=== PATIENT | male | born 1960 | race Caucasian/White ===

== ENCOUNTER 2024-09-26 10:15 | Oncology outpatient (recurring) (ONCR) | payer MEDICAID, SELFPAY ==
[2024-09-26 10:41] LABS: Basophils % 0.4 %; Eosinophils # 0.2 10^3/uL (0.0-0.8); Eosinophils % 2.7 %; Hematocrit 28.1 % (37-53); Mean Corpuscular HGB Conc 31.7 g/dL (30-55); Mean Corpuscular Hemoglobin 28.4 pg (27-33); Mean Corpuscular Volume 89.8 fl (82-101); Mean Platelet Volume 9.7 fL (7.4-10.4); Monocytes # 0.7 10^3/uL (0.2-0.9); Monocytes % 12.7 %; Neutrophils # 2.69 10^3/uL (1.8-7.7); Neutrophils % 47.5 %; Nucleated Red Blood Cells % 0 %; Platelet Count 139 10^3/cmm (157-399); Red Blood Count 3.13 10^6/uL (3.85-5.65); Red Cell Distribution Width 14.8 % (12.1-15.1); White Blood Count 5.66 10^3/uL (3.29-11.43)
[2024-09-26 10:59] LABS: Alanine Aminotransferase 37 U/L (0-41); Albumin Level 3.3 g/dL (3.5-5.2); Alkaline Phosphatase 144 U/L (40-130); Anion Gap 16.9 (5-19); Aspartate Amino Transferase 21 U/L (0-40); Blood Urea Nitrogen 17 mg/dL (8-23); Calcium 8.9 mg/dL (8.5-10.5); Carbon Dioxide 22 mmol/L (22-29); Chloride 103 mmol/L (98-107); Globulin 3.8 g/dL (1.3-4.6); Glomerular Filtration Rate 97.3 mL/min (90-130); Glucose 89 mg/dL (65-115); Osmolality Calculated 287 mOsm/kg (285-295); Potassium 3.9 mmol/L (3.5-5.1); Sodium 138 mmol/L (136-145); Total Bilirubin 0.2 mg/dL (0.15-1.2); Total Protein 7.1 g/dL (6.6-8.7)
== END 2024-10-11 23:59 | disposition home or self-care (01) ==
PROVIDERS: Visit Provider Internal Medicine
DX: C34.90 Malignant neoplasm of unspecified part of unspecified bronchus or lung (principal)
CPT/HCPCS: 36415; 80053; 85025

== ENCOUNTER 2024-10-31 14:15 | Oncology outpatient (recurring) (ONCR) | payer MEDICAID, SELFPAY ==
[2024-10-31 14:33] LABS: Basophils % 0.2 %; Eosinophils % 0.6 %; Hematocrit 28.9 % (37-53); Lymphocytes % 60.1 %; Mean Corpuscular HGB Conc 32.2 g/dL (30-55); Mean Corpuscular Hemoglobin 29.5 pg (27-33); Mean Corpuscular Volume 91.7 fl (82-101); Mean Platelet Volume 9.4 fL (7.4-10.4); Monocytes # 0.5 10^3/uL (0.2-0.9); Monocytes % 9.1 %; Neutrophils # 1.51 10^3/uL (1.8-7.7); Neutrophils % 29.8 %; Nucleated Red Blood Cells % 0 %; Platelet Count 202 10^3/cmm (157-399); Red Blood Count 3.15 10^6/uL (3.85-5.65); White Blood Count 5.06 10^3/uL (3.29-11.43)
[2024-10-31 14:52] LABS: Alanine Aminotransferase 47 U/L (0-41); Albumin Level 3.3 g/dL (3.5-5.2); Alkaline Phosphatase 148 U/L (40-130); Anion Gap 16.5 (5-19); Aspartate Amino Transferase 24 U/L (0-40); Blood Urea Nitrogen 25 mg/dL (8-23); Calcium 8.9 mg/dL (8.5-10.5); Carbon Dioxide 21 mmol/L (22-29); Chloride 105 mmol/L (98-107); Creatinine Clr Calc Pharmacy 72.5031; Globulin 3.4 g/dL (1.3-4.6); Glomerular Filtration Rate 113.5 mL/min (90-130); Glucose 128 mg/dL (65-115); Lactate Dehydrogenase 243 U/L (135-225); Osmolality Calculated 294 mOsm/kg (285-295); Potassium 3.5 mmol/L (3.5-5.1); Sodium 139 mmol/L (136-145); Total Bilirubin 0.2 mg/dL (0.15-1.2); Total Protein 6.7 g/dL (6.6-8.7)
== END 2024-11-11 23:59 | disposition home or self-care (01) ==
PROVIDERS: Visit Provider Internal Medicine
DX: Z53.9 Procedure and treatment not carried out, unspecified reason; C34.92 Malignant neoplasm of unspecified part of left bronchus or lung
CPT/HCPCS: 36415; 80053; 83615; 83735; 85025

== ENCOUNTER 2024-11-29 09:00 | Oncology outpatient (recurring) (ONCR) | payer MEDICAID, SELFPAY ==
[2024-11-22 08:28] LABS: Basophils % 0.5 %; Eosinophils % 0.3 %; Lymphocytes # 2.5 10^3/uL (0.8-4.8); Lymphocytes % 65.8 %; Mean Corpuscular HGB Conc 32.1 g/dL (30-55); Mean Corpuscular Hemoglobin 30.3 pg (27-33); Mean Corpuscular Volume 94.5 fl (82-101); Mean Platelet Volume 9.9 fL (7.4-10.4); Monocytes # 0.4 10^3/uL (0.2-0.9); Monocytes % 10.2 %; Neutrophils % 22.9 %; Nucleated Red Blood Cells % 0 %; Platelet Count 88 10^3/cmm (157-399); Red Blood Count 2.54 10^6/uL (3.85-5.65); White Blood Count 3.74 10^3/uL (3.29-11.43)
[2024-11-22 08:47] LABS: Alanine Aminotransferase 47 U/L (0-41); Albumin Level 3.4 g/dL (3.5-5.2); Alkaline Phosphatase 146 U/L (40-130); Anion Gap 16.5 (5-19); Aspartate Amino Transferase 27 U/L (0-40); Blood Urea Nitrogen 26 mg/dL (8-23); Calcium 8.7 mg/dL (8.5-10.5); Carbon Dioxide 20 mmol/L (22-29); Chloride 106 mmol/L (98-107); Globulin 3.2 g/dL (1.3-4.6); Glomerular Filtration Rate 97.3 mL/min (90-130); Glucose 87 mg/dL (65-115); Iron 86 ug/dL (59-158); Magnesium 2.1 mg/dL (1.7-2.3); Osmolality Calculated 292 mOsm/kg (285-295); Percent Saturation 42.5 % (20-50); Potassium 3.5 mmol/L (3.5-5.1); Sodium 139 mmol/L (136-145); Total Bilirubin 0.2 mg/dL (0.15-1.2); Total Iron Binding Capacity 202 mcg/dl; Total Protein 6.6 g/dL (6.6-8.7); Unsaturated Iron Binding 116 ug/dL (112-347)
[2024-11-22 09:00] LABS: Ferritin 1350 ng/mL (30-400)
[2024-11-22 09:03] LABS: Vitamin B12 846 pg/mL (232-1245)
[2024-11-22 09:09] LABS: Slide Review Slide Review Perform
[2024-11-22 09:14] LABS: Neutrophils # 0.86 10^3/uL (1.8-7.7)
[2024-11-22 09:46] LABS: Folate Level > 20.0 ng/mL (4.5-32.2)
[2024-11-22 11:30] VITALS: BP 120/84; PULSE 93; RESP 18; TEMP 36.6; O2SAT 99
[2024-11-22 11:45] VITALS: BP 121/82; PULSE 92; RESP 17; TEMP 36.4; O2SAT 99
[2024-11-22 12:00] VITALS: BP 128/90; PULSE 91; RESP 18; TEMP 36.4; O2SAT 98
[2024-11-29 09:26] LABS: Basophils % 0.2 %; Eosinophils % 0.7 %; Hematocrit 27.9 % (37-53); Lymphocytes % 50.1 %; Mean Corpuscular HGB Conc 32.3 g/dL (30-55); Mean Corpuscular Hemoglobin 29.9 pg (27-33); Mean Corpuscular Volume 92.7 fl (82-101); Mean Platelet Volume 10.4 fL (7.4-10.4); Monocytes # 0.8 10^3/uL (0.2-0.9); Monocytes % 19.3 %; Neutrophils % 29.7 %; Nucleated Red Blood Cells % 0 %; Platelet Count 75 10^3/cmm (157-399); Red Blood Count 3.01 10^6/uL (3.85-5.65); Red Cell Distribution Width 21.2 % (12.1-15.1); White Blood Count 4.05 10^3/uL (3.29-11.43)
[2024-11-29 09:48] LABS: Alanine Aminotransferase 21 U/L (0-41); Albumin Level 3.4 g/dL (3.5-5.2); Alkaline Phosphatase 153 U/L (40-130); Aspartate Amino Transferase 22 U/L (0-40); Blood Urea Nitrogen 18 mg/dL (8-23); Calcium 9.4 mg/dL (8.5-10.5); Carbon Dioxide 23 mmol/L (22-29); Chloride 103 mmol/L (98-107); Globulin 3.6 g/dL (1.3-4.6); Glucose 119 mg/dL (65-115); Magnesium 2.1 mg/dL (1.7-2.3); Osmolality Calculated 289 mOsm/kg (285-295); Sodium 138 mmol/L (136-145); Total Bilirubin 0.2 mg/dL (0.15-1.2)
[2024-11-29 10:27] LABS: Total Iron Binding Capacity 196 mcg/dl; Unsaturated Iron Binding 165 ug/dL (112-347)
[2024-11-29 10:41] LABS: Ferritin 1257 ng/mL (30-400)
[2024-11-29 10:42] LABS: Iron 31 ug/dL (59-158); Percent Saturation 15.8 % (20-50); Vitamin B12 1031 pg/mL (232-1245)
[2024-11-29 12:19] LABS: Folate Level > 20.0 ng/mL (4.5-32.2)
== END 2024-12-11 23:59 | disposition home or self-care (01) ==
PROVIDERS: Visit Provider Internal Medicine
DX: Z53.9 Procedure and treatment not carried out, unspecified reason; C34.92 Malignant neoplasm of unspecified part of left bronchus or lung; C79.31 Secondary malignant neoplasm of brain
CPT/HCPCS: 36591; 80053; 82607; 82728; 82746; 83540; 83550; 83735; 85025; 86850; 86900; 86920; P9016

== ENCOUNTER 2025-01-04 08:00 | Oncology outpatient (recurring) (ONCR) | payer MEDICAID, SELFPAY ==
[2024-12-13 11:07] LABS: Hematocrit 26.1 % (37-53); Hemoglobin 8.30 g/dL (11.27-16.99); Mean Corpuscular HGB Conc 31.8 g/dL (30-55); Mean Corpuscular Hemoglobin 30.9 pg (27-33); Mean Corpuscular Volume 97.0 fl (82-101); Nucleated Red Blood Cells % 0 %; Platelet Count 78 10^3/cmm (157-399); Red Blood Count 2.69 10^6/uL (3.85-5.65); White Blood Count 3.24 10^3/uL (3.29-11.43)
[2024-12-13 11:26] LABS: Alanine Aminotransferase 35 U/L (0-41); Albumin Level 3.4 g/dL (3.5-5.2); Alkaline Phosphatase 146 U/L (40-130); Anion Gap 17.8 (5-19); Aspartate Amino Transferase 26 U/L (0-40); Blood Urea Nitrogen 27 mg/dL (8-23); Calcium 9.0 mg/dL (8.5-10.5); Carbon Dioxide 21 mmol/L (22-29); Chloride 105 mmol/L (98-107); Globulin 3.6 g/dL (1.3-4.6); Glucose 133 mg/dL (65-115); Iron 110 ug/dL (59-158); Magnesium 2.1 mg/dL (1.7-2.3); Osmolality Calculated 297 mOsm/kg (285-295); Potassium 3.8 mmol/L (3.5-5.1); Sodium 140 mmol/L (136-145); Total Iron Binding Capacity 226 mcg/dl; Total Protein 7.0 g/dL (6.6-8.7); Unsaturated Iron Binding 116 ug/dL (112-347)
[2024-12-13 11:42] LABS: Vitamin B12 854 pg/mL (232-1245)
[2024-12-13 11:45] LABS: Ferritin 1611 ng/mL (30-400)
[2025-01-03 11:28] LABS: Hematocrit 22.0 % (37-53); Hemoglobin 7.00 g/dL (11.27-16.99); Mean Corpuscular HGB Conc 31.8 g/dL (30-55); Mean Corpuscular Hemoglobin 32.4 pg (27-33); Mean Corpuscular Volume 101.9 fl (82-101); Nucleated Red Blood Cells % 0.6 %; Platelet Count 57 10^3/cmm (157-399); Red Blood Count 2.16 10^6/uL (3.85-5.65); White Blood Count 3.45 10^3/uL (3.29-11.43)
[2025-01-03 11:50] LABS: Alanine Aminotransferase 28 U/L (0-41); Albumin Level 3.4 g/dL (3.5-5.2); Alkaline Phosphatase 136 U/L (40-130); Anion Gap 17.7 (5-19); Aspartate Amino Transferase 26 U/L (0-40); Blood Urea Nitrogen 23 mg/dL (8-23); Calcium 9.2 mg/dL (8.5-10.5); Carbon Dioxide 21 mmol/L (22-29); Chloride 104 mmol/L (98-107); Creatinine Clr Calc Pharmacy 51.2378; Globulin 3.6 g/dL (1.3-4.6); Glucose 116 mg/dL (65-115); Magnesium 2.2 mg/dL (1.7-2.3); Osmolality Calculated 293 mOsm/kg (285-295); Potassium 3.7 mmol/L (3.5-5.1); Sodium 139 mmol/L (136-145); Total Protein 7.0 g/dL (6.6-8.7)
[2025-01-04] VITALS (11 sets, daily range): BP systolic 108–148; BP diastolic 75–94; PULSE 61–97; RESP 16–17; TEMP 36.3–37.2; O2SAT 93–100
== END 2025-01-11 23:59 | disposition home or self-care (01) ==
PROVIDERS: Visit Provider Internal Medicine
DX: Z53.9 Procedure and treatment not carried out, unspecified reason; D64.9 Anemia, unspecified; C34.90 Malignant neoplasm of unspecified part of unspecified bronchus or lung; Z79.899 Other long term (current) drug therapy
CPT/HCPCS: 36415; 36430; 80053; 82607; 82728; 82746; 83540; 83550; 83615; 83735; 85025; 86850; 86900; 86920; P9016

== ENCOUNTER 2025-01-24 09:11 | Oncology outpatient (recurring) (ONCR) | payer MEDICAID, SELFPAY ==
[2025-01-24 09:50] LABS: Hematocrit 30.0 % (37-53); Hemoglobin 9.80 g/dL (11.27-16.99); Mean Corpuscular HGB Conc 32.7 g/dL (30-55); Mean Corpuscular Hemoglobin 30.8 pg (27-33); Mean Corpuscular Volume 94.3 fl (82-101); Nucleated Red Blood Cells % 0 %; Platelet Count 129 10^3/cmm (157-399); Red Blood Count 3.18 10^6/uL (3.85-5.65); White Blood Count 4.42 10^3/uL (3.29-11.43)
[2025-01-24 10:11] LABS: Alanine Aminotransferase 29 U/L (0-41); Albumin Level 3.4 g/dL (3.5-5.2); Alkaline Phosphatase 150 U/L (40-130); Anion Gap 17.3 (5-19); Aspartate Amino Transferase 30 U/L (0-40); Blood Urea Nitrogen 20 mg/dL (8-23); Calcium 9.2 mg/dL (8.5-10.5); Carbon Dioxide 22 mmol/L (22-29); Chloride 102 mmol/L (98-107); Globulin 3.8 g/dL (1.3-4.6); Glucose 131 mg/dL (65-115); Iron 51 ug/dL (59-158); Magnesium 1.9 mg/dL (1.7-2.3); Osmolality Calculated 290 mOsm/kg (285-295); Potassium 3.3 mmol/L (3.5-5.1); Sodium 138 mmol/L (136-145); Total Iron Binding Capacity 185 mcg/dl; Total Protein 7.2 g/dL (6.6-8.7); Unsaturated Iron Binding 134 ug/dL (112-347)
[2025-01-24 10:24] LABS: Vitamin B12 1138 pg/mL (232-1245)
[2025-01-24 10:25] LABS: Ferritin 3109 ng/mL (30-400)
[2025-01-24] MEDS: sodium chlor 0.9% + KCl 40 mEq 40 MEQ/1,000 ML BAG 500 MEQ IV (11:18)
[2025-01-24] MEDS: HYDROmorphone 0.5 MG/0.5 ML INJ 1 MG IVP (11:19)
--- NOTE | 2025-01-24 13:07 | PC.NURSE ---
1765- Patient reports that pain is gone 0/10 at this time and he is much more comfortable. Patient is able to rest in chair, supported with pillows and warm blankets. - Rafiq Galo
[2025-01-24 13:38] VITALS: BP 143/83; PULSE 98; RESP 17; TEMP 36.9; O2SAT 95
== END 2025-02-11 23:59 | disposition home or self-care (01) ==
PROVIDERS: Visit Provider Internal Medicine
DX: C34.92 Malignant neoplasm of unspecified part of left bronchus or lung (principal); C79.31 Secondary malignant neoplasm of brain; E87.6 Hypokalemia; Z79.899 Other long term (current) drug therapy
CPT/HCPCS: 36591; 80053; 82607; 82728; 82746; 83540; 83550; 83735; 85025; 96365; 96366; 96375; J1171; J9999

== ENCOUNTER 2025-02-14 10:10 | Outpatient (CLI) | payer MEDICAID, SELFPAY | END 2025-02-14 10:11 | disposition home or self-care (01) | PROVIDERS: Visit Provider Internal Medicine | DX: Z45.2 Encounter for adjustment and management of vascular access device (principal); C34.92 Malignant neoplasm of unspecified part of left bronchus or lung; C79.31 Secondary malignant neoplasm of brain | CPT/HCPCS: 36591 ==

== ENCOUNTER 2025-03-08 08:18 | Oncology outpatient (recurring) (ONCR) | payer MEDICAID, SELFPAY ==
[2025-02-14 10:40] LABS: Hematocrit 25.8 % (37-53); Hemoglobin 8.10 g/dL (11.27-16.99); Mean Corpuscular HGB Conc 31.4 g/dL (30-55); Mean Corpuscular Hemoglobin 30.0 pg (27-33); Mean Corpuscular Volume 95.6 fl (82-101); Nucleated Red Blood Cells % 0 %; Platelet Count 100 10^3/cmm (157-399); Red Blood Count 2.70 10^6/uL (3.85-5.65); White Blood Count 4.02 10^3/uL (3.29-11.43)
[2025-02-14 10:43] LABS: Alanine Aminotransferase 20 U/L (0-41); Albumin Level 3.3 g/dL (3.5-5.2); Alkaline Phosphatase 180 U/L (40-130); Anion Gap 16.7 (5-19); Aspartate Amino Transferase 26 U/L (0-40); Blood Urea Nitrogen 23 mg/dL (8-23); Calcium 9.4 mg/dL (8.5-10.5); Carbon Dioxide 24 mmol/L (22-29); Chloride 102 mmol/L (98-107); Creatinine Clr Calc Pharmacy 48.4113; Globulin 3.9 g/dL (1.3-4.6); Glucose 150 mg/dL (65-115); Magnesium 2.0 mg/dL (1.7-2.3); Osmolality Calculated 295 mOsm/kg (285-295); Potassium 3.7 mmol/L (3.5-5.1); Sodium 139 mmol/L (136-145); Total Protein 7.2 g/dL (6.6-8.7)
[2025-03-08] VITALS (12 sets, daily range): BP systolic 109–149; BP diastolic 73–93; PULSE 67–99; RESP 16–17; TEMP 36.2–36.7; O2SAT 98–99
[2025-03-08 08:39] LABS: Hematocrit 22.3 % (37-53); Hemoglobin 7.20 g/dL (11.27-16.99); Mean Corpuscular HGB Conc 32.3 g/dL (30-55); Mean Corpuscular Hemoglobin 32.4 pg (27-33); Mean Corpuscular Volume 100.5 fl (82-101); Nucleated Red Blood Cells % 0 %; Platelet Count 92 10^3/cmm (157-399); Red Blood Count 2.22 10^6/uL (3.85-5.65); White Blood Count 4.96 10^3/uL (3.29-11.43)
[2025-03-08 08:58] LABS: Alanine Aminotransferase 12 U/L (0-41); Albumin Level 3.2 g/dL (3.5-5.2); Alkaline Phosphatase 169 U/L (40-130); Anion Gap 18.7 (5-19); Aspartate Amino Transferase 19 U/L (0-40); Blood Urea Nitrogen 26 mg/dL (8-23); Calcium 9.0 mg/dL (8.5-10.5); Carbon Dioxide 21 mmol/L (22-29); Chloride 103 mmol/L (98-107); Creatinine Clr Calc Pharmacy 48.4113; Globulin 3.8 g/dL (1.3-4.6); Glucose 135 mg/dL (65-115); Osmolality Calculated 295 mOsm/kg (285-295); Potassium 3.7 mmol/L (3.5-5.1); Sodium 139 mmol/L (136-145); Total Protein 7.0 g/dL (6.6-8.7)
== END 2025-03-13 23:59 | disposition home or self-care (01) ==
PROVIDERS: Internal Medicine; Visit Provider Internal Medicine
DX: Z53.9 Procedure and treatment not carried out, unspecified reason; D64.9 Anemia, unspecified
CPT/HCPCS: 36430; 80053; 83615; 83735; 85025; 86850; 86900; 86920; J7050; J9999; P9016

== ENCOUNTER 2025-04-11 09:00 | Oncology outpatient (recurring) (ONCR) | payer MEDICAID, SELFPAY ==
[2025-04-10 11:20] VITALS: BP 145/85; PULSE 74; RESP 18; TEMP 36.6; O2SAT 97
[2025-04-11 09:23] VITALS: BP 112/78; PULSE 91; RESP 16; TEMP 37.3; O2SAT 98
[2025-04-11 10:35] VITALS: BP 125/78; PULSE 66; RESP 17; TEMP 36.2; O2SAT 100
== END 2025-04-13 23:59 | disposition home or self-care (01) ==
PROVIDERS: Visit Provider Internal Medicine
DX: C34.90 Malignant neoplasm of unspecified part of unspecified bronchus or lung; Z79.899 Other long term (current) drug therapy; Z53.9 Procedure and treatment not carried out, unspecified reason
CPT/HCPCS: 96360; J7030

== ENCOUNTER 2025-05-09 10:03 | Oncology outpatient (recurring) (ONCR) | payer MEDICAID, SELFPAY ==
[2025-04-19] VITALS (11 sets, daily range): BP systolic 113–139; BP diastolic 70–85; PULSE 82–98; RESP 17–18; TEMP 36.3–36.9; O2SAT 98–99
[2025-04-19 09:30] LABS: Hematocrit 21.6 % (37-53); Hemoglobin 7.00 g/dL (11.27-16.99); Mean Corpuscular HGB Conc 32.4 g/dL (30-55); Mean Corpuscular Hemoglobin 32.9 pg (27-33); Mean Corpuscular Volume 101.4 fl (82-101); Nucleated Red Blood Cells % 0 %; Platelet Count 60 10^3/cmm (157-399); Red Blood Count 2.13 10^6/uL (3.85-5.65); White Blood Count 3.88 10^3/uL (3.29-11.43)
[2025-04-19 09:44] LABS: Alanine Aminotransferase 19 U/L (0-41); Albumin Level 2.9 g/dL (3.5-5.2); Alkaline Phosphatase 183 U/L (40-130); Anion Gap 15.8 (5-19); Aspartate Amino Transferase 27 U/L (0-40); Blood Urea Nitrogen 20 mg/dL (8-23); Calcium 8.5 mg/dL (8.5-10.5); Carbon Dioxide 21 mmol/L (22-29); Chloride 103 mmol/L (98-107); Creatinine Clr Calc Pharmacy 52.2553; Globulin 2.9 g/dL (1.3-4.6); Glucose 120 mg/dL (65-115); Osmolality Calculated 286 mOsm/kg (285-295); Potassium 3.8 mmol/L (3.5-5.1); Sodium 136 mmol/L (136-145); Total Protein 5.8 g/dL (6.6-8.7)
[2025-04-19 10:07] LABS: Slide Review Slide Review Perform
[2025-04-24 08:14] VITALS: BP 100/69; PULSE 98; RESP 17; TEMP 37; O2SAT 98
[2025-04-25 09:23] VITALS: BP 106/76; PULSE 100; RESP 17; TEMP 36.7; O2SAT 99
[2025-04-25 11:11] VITALS: BP 129/82; PULSE 86; RESP 17; TEMP 36.2; O2SAT 98
[2025-05-09 10:42] LABS: Hematocrit 26.9 % (37-53); Hemoglobin 8.70 g/dL (11.27-16.99); Mean Corpuscular HGB Conc 32.3 g/dL (30-55); Mean Corpuscular Hemoglobin 31.8 pg (27-33); Mean Corpuscular Volume 98.2 fl (82-101); Nucleated Red Blood Cells % 0 %; Platelet Count 54 10^3/cmm (157-399); Red Blood Count 2.74 10^6/uL (3.85-5.65); White Blood Count 3.46 10^3/uL (3.29-11.43)
[2025-05-09 10:53] LABS: Alanine Aminotransferase 22 U/L (0-41); Albumin Level 2.8 g/dL (3.5-5.2); Alkaline Phosphatase 189 U/L (40-130); Anion Gap 13.3 (5-19); Aspartate Amino Transferase 27 U/L (0-40); Blood Urea Nitrogen 27 mg/dL (8-23); Calcium 8.6 mg/dL (8.5-10.5); Carbon Dioxide 25 mmol/L (22-29); Chloride 106 mmol/L (98-107); Globulin 3.0 g/dL (1.3-4.6); Glucose 99 mg/dL (65-115); Osmolality Calculated 295 mOsm/kg (285-295); Potassium 4.3 mmol/L (3.5-5.1); Sodium 140 mmol/L (136-145); Total Protein 5.8 g/dL (6.6-8.7)
[2025-05-09] MEDS: ondansetron 2 mg/ML SDV 2 mL 8 MG IVP (12:18)
[2025-05-09 13:45] VITALS: BP 114/74; PULSE 70; RESP 17; TEMP 35.8; O2SAT 100
== END 2025-05-13 23:59 | disposition home or self-care (01) ==
PROVIDERS: Nurse Practitioner Family; Visit Provider Internal Medicine
DX: Z53.9 Procedure and treatment not carried out, unspecified reason; C34.92 Malignant neoplasm of unspecified part of left bronchus or lung; Z79.899 Other long term (current) drug therapy; Z79.52 Long term (current) use of systemic steroids
CPT/HCPCS: 36430; 80053; 83615; 85025; 86850; 86900; 86920; 96360; 96375; J1100; J2405; J3490; J7030; J9999; P9016

== ENCOUNTER 2025-05-24 09:45 | Oncology outpatient (recurring) (ONCR) | payer MEDICAID, SELFPAY ==
[2025-05-16 10:36] LABS: Hematocrit 23.5 % (37-53); Hemoglobin 7.50 g/dL (11.27-16.99); Mean Corpuscular HGB Conc 31.9 g/dL (30-55); Mean Corpuscular Hemoglobin 31.3 pg (27-33); Mean Corpuscular Volume 97.9 fl (82-101); Nucleated Red Blood Cells % 0.2 %; Platelet Count 33 10^3/cmm (157-399); Red Blood Count 2.40 10^6/uL (3.85-5.65); White Blood Count 8.50 10^3/uL (3.29-11.43)
[2025-05-16 11:07] LABS: Alanine Aminotransferase 18 U/L (0-41); Albumin Level 2.7 g/dL (3.5-5.2); Alkaline Phosphatase 211 U/L (40-130); Anion Gap 14.8 (5-19); Aspartate Amino Transferase 23 U/L (0-40); Blood Urea Nitrogen 31 mg/dL (8-23); Calcium 8.3 mg/dL (8.5-10.5); Carbon Dioxide 22 mmol/L (22-29); Chloride 109 mmol/L (98-107); Globulin 3.0 g/dL (1.3-4.6); Glucose 120 mg/dL (65-115); Osmolality Calculated 302 mOsm/kg (285-295); Potassium 3.8 mmol/L (3.5-5.1); Sodium 142 mmol/L (136-145); Total Protein 5.7 g/dL (6.6-8.7)
[2025-05-16 13:45] VITALS: BP 119/83; PULSE 89; RESP 16; TEMP 36.6; O2SAT 98
[2025-05-16 13:59] VITALS: BP 109/76; PULSE 93; RESP 16; TEMP 36.6; O2SAT 98
[2025-05-16 14:15] VITALS: BP 106/70; PULSE 90; RESP 16; TEMP 36.3; O2SAT 99
[2025-05-16 14:45] VITALS: PULSE 80; RESP 16; TEMP 36.3; O2SAT 98
[2025-05-16 15:54] VITALS: BP 119/83; PULSE 88; RESP 16; TEMP 36.9; O2SAT 98
[2025-05-16 16:03] VITALS: BP 119/83; PULSE 88; RESP 16; TEMP 36.9; O2SAT 98
[2025-05-17 10:58] VITALS: BP 107/68; PULSE 102; RESP 16; TEMP 36.8
[2025-05-17 11:17] VITALS: BP 111/78; PULSE 85; RESP 16; TEMP 36.9; O2SAT 99
[2025-05-17 11:36] VITALS: BP 119/85; PULSE 81; RESP 16; TEMP 36.9; O2SAT 99
[2025-05-17 12:05] VITALS: BP 134/83; PULSE 102; RESP 16; TEMP 36.5; O2SAT 99
[2025-05-17 13:07] VITALS: BP 131/88; PULSE 82; RESP 16; TEMP 36.8; O2SAT 99
[2025-05-17 13:18] VITALS: BP 131/88; PULSE 82; RESP 16; TEMP 36.8; O2SAT 99
[2025-05-24 12:59] LABS: Hematocrit 32.0 % (37-53); Hemoglobin 10.90 g/dL (11.27-16.99); Mean Corpuscular HGB Conc 34.1 g/dL (30-55); Mean Corpuscular Hemoglobin 32.2 pg (27-33); Mean Corpuscular Volume 94.4 fl (82-101); Nucleated Red Blood Cells % 0 %; Platelet Count 113 10^3/cmm (157-399); Red Blood Count 3.39 10^6/uL (3.85-5.65); White Blood Count 16.88 10^3/uL (3.29-11.43)
[2025-05-24 13:10] LABS: Slide Review Slide Review Perform
== END 2025-05-30 23:59 | disposition home or self-care (01) ==
PROVIDERS: Nurse Practitioner Family; Visit Provider Internal Medicine
DX: C79.31 Secondary malignant neoplasm of brain; C34.92 Malignant neoplasm of unspecified part of left bronchus or lung; D64.9 Anemia, unspecified; Z79.899 Other long term (current) drug therapy; Z53.9 Procedure and treatment not carried out, unspecified reason
CPT/HCPCS: 36430; 36591; 80053; 82746; 85025; 86850; 86900; 86920; 96360; 96365; 96375; J1100; J7040; J7050; J9999; P9016